=== PATIENT | female | born 1955 | race African-American/Black ===

== ENCOUNTER 2022-01-18 10:46 | Outpatient (CLI) | payer MEDICARE ==
[2022-01-18 13:27] LABS: #Monocytes 0.9 10x3/uL (0.0-1.1); #Neutrophils 4.8 10x3/uL (1.5-8.4); %Basophils 0.4 % (0.0-2.0); %Eosinophils 0.1 % (0.0-6.0); %Lymphocytes 26.5 % (18.0-47.0); %Monocytes 11.5 % (0.0-10.0); %Neutrophils 61.2 % (40.0-75.0); Hemoglobin 12.5 g/dL (12.0-15.5); Mean Corpuscular HGB CONC 34.4 g/dL (32.0-36.0); Mean Corpuscular Hemoglobin 28.3 pg (27.0-33.0); Mean Corpuscular Volume 82.1 fl (81.6-98.3); Mean Platelet Volume 10.4 fl (7.4-10.4); Platelet Count 324 10x3/uL (150-450); RBC Distribution Width 14.7 % (11.5-14.5); Red Blood Cell (RBC) Count 4.42 10x6/uL (3.90-5.03); White Blood Cell (WBC) Count 7.8 10x3/uL (3.5-10.5)
[2022-01-18 13:40] LABS: ALT (SGPT) 21 U/L (8-55); AST (SGOT) 20 U/L (5-34); Albumin 4.5 g/dL (3.4-4.8); Alkaline Phosphatase 83 U/L (40-110); Anion Gap 18 mmol/L (10-20); BUN (Urea Nitrogen) 8 mg/dL (9.8-20.1); Bilirubin, Direct 0.3 mg/dL (0.1-0.3); Bilirubin, Total 0.8 mg/dL (0.2-1.2); Calc. Creatinine Clearance 0 mL/min (70-130); Calcium 9.7 mg/dL (7.8-10.44); Carbon Dioxide 27 mmol/L (23-31); Chloride 102 mmol/L (98-107); Estimated GFR 94; Glucose 105 mg/dL (80-115); Potassium 3.6 mmol/L (3.5-5.1); Protein, Total 8.5 g/dL (5.8-8.1); Sodium 143 mmol/L (136-145)
== END 2022-01-18 10:47 | disposition home or self-care (01) ==
LOC: LABBT 10:46
PROVIDERS: ATTEND Surgery
DX: Z01.818 Encounter for other preprocedural examination (principal); K80.20 Calculus of gallbladder without cholecystitis without obstruction; Z20.822 Contact with and (suspected) exposure to COVID-19
CPT/HCPCS: 80053; 80076; 85025; 87811; 93005; 93010

== ENCOUNTER 2022-01-21 07:32 | Day surgery (SDC) | payer MEDICARE ==
[2022-01-19 09:46] VITALS: BMI 36.9
[2022-01-21] MEDS ORDERED: Bupivacaine/Epinephrine 0.25% 30 ML VIAL ONE (08:55)
[2022-01-21] MEDS ORDERED: fentaNYL Citrate/PF 100 MCG/2 ML SYRINGE ONE (09:02)
[2022-01-21] MEDS ORDERED: Sodium Chloride 0.9% 100 ML ONE (09:05)
[2022-01-21] MEDS ORDERED: cefOXitin 2 GM VIAL ONE (09:05)
[2022-01-21] MEDS ORDERED: Ondansetron PF 4 MG/2 ML Vial ONE ×2 (09:20→10:48)
[2022-01-21] MEDS ORDERED: Glycopyrrolate 0.2 MG/ML 5 ML SYRINGE ONE (09:20)
[2022-01-21] MEDS ORDERED: Rocuronium Bromide 10 MG/ML (10ML VIAL) ONE (09:20)
[2022-01-21] MEDS ORDERED: NEOSTIGMINE 3 MG/3 ML SYR 3 MG/3 ML SYRINGE ONE (09:20)
[2022-01-21] MEDS ORDERED: Dexamethasone 20 MG/5 ML VIAL ONE (09:20)
[2022-01-21] MEDS ORDERED: Lidocaine 1% MPF 2 ML VIAL ONE (09:20)
[2022-01-21] MEDS ORDERED: ePHEDrine 50 MG/ML VIAL ONE (09:20)
[2022-01-21] MEDS ORDERED: Phenylephrine 10 MG/ML VIAL ONE (09:20)
[2022-01-21] MEDS ORDERED: PROPOFOL 200 MG/20 ML VIAL ONE (09:20)
[2022-01-21] MEDS ORDERED: Ketorolac Tromethamine 30 MG/ML VIAL ONE (09:20)
[2022-01-21] MEDS ORDERED: Fentanyl 100 MCG/2 ML VIAL ONE ×2 (10:53→11:31)
[2022-01-21] MEDS ORDERED: Ondansetron ODT 4 MG TAB ONE (12:39)
== END 2022-01-21 13:00 | disposition home or self-care (01) ==
LOC: SDC 07:32
PROVIDERS: ATTEND Surgery
PROC: 0FT44ZZ Resection of Gallbladder, Percutaneous Endoscopic Approach (ICD-10-PCS; principal; 2022-01-21)
DX: K80.12 Calculus of gallbladder with acute and chronic cholecystitis without obstruction (principal); K82.A1 Gangrene of gallbladder in cholecystitis; K82.1 Hydrops of gallbladder; I10 Essential (primary) hypertension; E11.9 Type 2 diabetes mellitus without complications; E66.9 Obesity, unspecified; Z68.37 Body mass index [BMI] 37.0-37.9, adult; Z79.84 Long term (current) use of oral hypoglycemic drugs; Z79.899 Other long term (current) drug therapy
CPT/HCPCS: 47562; 87070; 87075; 87077; 87186; 87205; C1713; 88304; J0694; J1100; J1885; J2370; J2405; J2704; J3010; J3490; Q0162